=== PATIENT | male | born 1945 | race Caucasian/White ===

== ENCOUNTER 2019-05-01 15:26 | Emergency (ER) | payer OTHER ==
[2019-05-01] MEDS ORDERED: ALBUTEROL NEB SOL 2.5MG/3ML 1 VIAL SOL NEB ONE (18:33)
[2019-05-01] MEDS ORDERED: ALBUTEROL NEB SOL 2.5MG/3ML 1 VIAL SOL ONE (18:39)
[2019-05-01 19:01] LABS: CALCIUM 8.9 mg/dl (8.5-10.1); CARBON DIOXIDE 28.4 mEq/L (21-32); CREATININE 1.76 mg/dl (0.80-1.30)
[2019-05-01 19:08] LABS: HEMATOCRIT 47 % (39-53); HEMOGLOBIN 15.4 gm/dl (13.5-17.7); MEAN CORPUSCULAR HGB CONC 32.6 gm/dl (32.0-36.0)
[2019-05-01 19:18] VITALS: PULSE 81
[2019-05-01 19:18] LABS: MEAN CORPUSCULAR VOLUME 101 fL (80-100)
[2019-05-01] MEDS ORDERED: CEFTRIAXONE 1 GM PDS IM ONE (19:29)
[2019-05-01] MEDS ORDERED: AZITHROMYCIN 250 MG TAB PO ONE (19:29)
[2019-05-01] MEDS ORDERED: AZITHROMYCIN 250 MG TAB ONE (19:42)
[2019-05-01] MEDS ORDERED: CEFTRIAXONE 1 GM PDS ONE (19:42)
[2019-05-01] MEDS ORDERED: LIDOCAINE HCL 1% MPF 30 SOL ONE (19:42)
[2019-05-01] MEDS ORDERED: OFLOXACIN 0.3% OPHTHAL 1 DROP SOL OP SCH (19:45)
[2019-05-01] MEDS ORDERED: OFLOXACIN 0.3% OPHTHAL 1 DROP SOL ONE (19:55)
[2019-05-01 20:02] LABS: ANISOCYTOSIS SLIGHT AMT; BAND NEUTROPHILS % (MANUAL) 18 %; BASOPHILS % (MANUAL) 0 % (0-3); EOSINOPHILS % (MANUAL) 0 % (0-9); LYMPHOCYTES % (MANUAL) 11 % (10-50); MONOCYTES % (MANUAL) 7 % (0-12); NEUTROPHILS % (MANUAL) 64 % (37-80)
[2019-05-01 20:10] VITALS: BP 127/87; RESP 18; TEMP 98; O2SAT 92
== END 2019-05-01 20:27 | disposition home or self-care (01) | DRG 947 ==
LOC: ED 15:26
DX: R53.1 Weakness (principal); J18.9 Pneumonia, unspecified organism; J40 Bronchitis, not specified as acute or chronic; H10.89 Other conjunctivitis
CPT/HCPCS: 36415; 71046; 80048; 85007; 85027; 86140; 87070; 96372; 99283; 99285; J0696; J7613; A9270-GY; J2001